=== PATIENT | male | born 1970 | race Caucasian/White ===

== ENCOUNTER → 2016-08-02 | Outpatient (CLI) | payer OTHER ==
--- NOTE | 2016-08-02 14:36 | MR ---
MRI of the Right Shoulder Without Contrast History: Shoulder pain, evaluate biceps tendon. Technique: Axial proton density, oblique coronal, and sagittal T1 and T2 images were acquired. Findings: The acromioclavicular joint is markedly abnormal in appearance, with evidence of distal cla vicular bone marrow edema and osteolysis. There is also capsular thickening and edema. Supraspinatus, infraspinatus, subscapularis, and teres minor appear normal. Long head biceps tendon i s normally positioned and intact, without evidence of tear or displacement. No evidence of displaced glenoid labral tear. Articular cartilage of the glenohumeral joint is intact . 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 Otherwise, negative MRI examination of the right shoulder.
== END ==
LOC: FIMAGING 07:36
PROVIDERS: ATTEND Orthopaedic Surgery
DX: M12.811 Other specific arthropathies, not elsewhere classified, right shoulder (principal)